=== PATIENT | female | born 1975 | race Caucasian/White ===

== ENCOUNTER 2018-10-17 05:04 | Day surgery (SDC) | payer OTHER ==
[2018-10-16 13:17] VITALS: BMI 41.8
[2018-10-17] MEDS ORDERED: IBUPROFEN 800 MG/8 ML IJ IVPB PRN (10:07)
--- NOTE | 2018-10-17 10:07 | HP ---
History & Physical Update - History History: No Change - Physical Physical: No Change - Assessment Assessment: No Change - Plan Plan: No Change (diagnostic laparoscopy for pelvic pain, possible endometriosis (agree with H&P from 10/16/18))
[2018-10-17] MEDS ORDERED: LACTATED RINGERS SOLUTION 1,000 ML IV SCH ×2 (10:15→13:15)
[2018-10-17] MEDS ORDERED: MIDAZOLAM HCL 2 MG/2 ML SINGLE DOSE VIAL ONE ×2 (10:16)
[2018-10-17] MEDS ORDERED: fentaNYL CITRATE 250 MCG/5 ML VIAL ONE (10:22)
[2018-10-17] MEDS ORDERED: PROPOFOL 20 ML ONE ×2 (10:24)
[2018-10-17] MEDS ORDERED: ROCURONIUM BROMIDE 50 MG/5 ML VIAL ONE (10:32)
[2018-10-17] MEDS ORDERED: BUPIVACAINE HCL/PF (5 MG/ML) 30 ML VIAL IJ ONE (10:34)
[2018-10-17] MEDS ORDERED: GLYCOPYRROLATE 0.2 MG/1 ML VIAL ONE ×2 (11:09)
[2018-10-17] MEDS ORDERED: LIDOCAINE HCL/PF 2% SDV 5ML VIAL ONE (11:09)
[2018-10-17] MEDS ORDERED: NEOSTIGMINE METHYLSULFATE 0.5 MG/ML - 10 ML MDV ONE (11:09)
[2018-10-17] MEDS ORDERED: DEXAMETHASONE SOD PHOSPHATE 4 MG/1 ML VIAL ONE (11:09)
--- NOTE | 2018-10-17 11:37 | OP ---
<Julio Do - Last Filed: 10/17/18 11:31> Operative Note - Note: Operative Date: 10/17/18 Pre-Operative Diagnosis: Pelvic Pain Operation: Diagnostic laparoscopy, ablation of lesion Findings: as dictated Post-Operative Diagnosis: Same as Pre-op Surgeon: Annette Abreu Delivery Merchandiser: Julio Do Anesthesiologist/DUST BOX TENDER: Kylah Presley MD Anesthesia: General, Local (8cc .25% marcaine injected to incisions at end of case ) Specimens Removed: none Drains, Volume Out (mls): 145 (ml clear urine out ) Fluid Volume Replaced (mls): 1 (L LR) <Annette Abreu - Last Filed: 10/17/18 15:01> Operative Note - Note: Operation: fulguration of uterosacral endometriosis implants
--- NOTE | 2018-10-17 11:44 | SURG ---
Surgery Human Resources Partner Note Human Resources Partner: Julio Do PA-C (Suzy) Date of Service: 10/17/18 Diagnosis: Pelvic Pain Procedure: Diagnostic laparoscopy, fulguration of endometrial implants I was present for the entirety of the operative procedure. For further detail, please refer to operative report. Visit type - Case Type Case Type: Scheduled - Emergency Emergency Visit: No - New patient This patient is new to me today: Yes Date on this admission: 10/23/18 - Critical Care Critical Care patient: No
[2018-10-17] MEDS ORDERED: PROMETHAZINE HCL 25 MG/1 ML VIAL IVPUSH PRN (13:05)
[2018-10-17] MEDS ORDERED: ONDANSETRON 4 MG/2 ML VIAL IVPUSH PRN (13:05)
[2018-10-17] MEDS ORDERED: oxyCODONE HCL 5 MG TABLET PO PRN (13:05)
[2018-10-17] MEDS ORDERED: oxyCODONE HCL 5 MG TABLET PO ONE (13:40)
[2018-10-17 16:33] VITALS: BP 121/66; PULSE 83; TEMP 98.1
--- NOTE | 2018-10-19 09:31 | OP ---
DATE OF OPERATION: 10/17/2018 PREOPERATIVE DIAGNOSIS: Chronic pelvic pain, suspected endometriosis. POSTOPERATIVE DIAGNOSIS: Confirmed endometriosis. PROCEDURE: Diagnostic laparoscopy, fulguration of endometriosis implants. SURGEON: Annette Abreu MD TOOL PROGRAMMER: CARINA Us ANESTHESIA: General. ANESTHESIOLOGIST: Kylah Presley MD COMPLICATIONS: None. COUNTS: Sponge, needle, and instrument counts correct. DISPOSITION: Stable to the PACU. SPECIMENS: None. BRIEF HISTORY AND PROCEDURE: Patient is a 43-year-old female who was seen in the office with complaints of a chronic history of suspected endometriosis with failed hormonal therapy. The patient admits into having a diagnostic laparoscopy for confirmation of diagnosis. The patient signed consents for the procedure in the office and was admitted to [facility] on October 17, 2018, where consents were reconfirmed. The patient was then taken back to the operating room, given general anesthesia, placed in the dorsal lithotomy position, and a hard time-out was performed. A 5-mm skin incision was created in the umbilicus, and the Veress needle was placed intraabdominally. Then, the abdomen was insufflated with CO2 gas. A 5-mm trocar was inserted into the same site. After the camera was inserted and intraabdominal placement was confirmed, 2 bilateral 5-mm trocars were placed on the left and right lower quadrant under direct visualization. After inspection of the abdomen and pelvis, multiple endometriosis implants were noted on the posterior cul-de-sac, on the posterior aspect of the uterus, and on the right uterosacral ligament. These were carefully fulgurated with EndoShears at this time. The right ureter was noted to be peristalsing in a normal caliber lateral to the uterosacral ligament after the procedure. All instruments were then removed from the abdomen. The abdomen was desufflated. The trocars were removed. The skin was reapproximated using 4-0 Biosyn and skin glue, and the patient was awoken from anesthesia in stable condition. Sponge, needle, and instrument counts were reported to be correct. ANNETTE ABREU DO /[id number]
== END 2018-10-17 15:30 | disposition home or self-care (01) ==
LOC: JASUSAT 05:04
PROVIDERS: ATTEND Obstetrics & Gynecology
PROC: 0U594ZZ Destruction of Uterus, Percutaneous Endoscopic Approach (ICD-10-PCS; 2018-10-17)
PROC: 0U544ZZ Destruction of Uterine Supporting Structure, Percutaneous Endoscopic Approach (ICD-10-PCS; principal; 2018-10-17 10:00)
DX: N80.0 Endometriosis of uterus (principal)
CPT/HCPCS: 36415; 84702; 86850; 86900; 86901; 94760

== ENCOUNTER 2023-06-01 06:16 | Day surgery (SDC) | payer OTHER ==
[2023-05-24 09:51] VITALS: BMI 27.6
[2023-06-01] MEDS ORDERED: MIDAZOLAM HCL 2 MG/2 ML SINGLE DOSE VIAL ONE ×2 (07:21→07:33)
[2023-06-01] MEDS ORDERED: ceFAZolin SODIUM 1 GM VIAL ONE (07:22)
[2023-06-01] MEDS ORDERED: ONDANSETRON 4 MG/2 ML VIAL ONE (07:22)
[2023-06-01] MEDS ORDERED: PROPOFOL 40 ML ONE (07:22)
[2023-06-01] MEDS ORDERED: DEXAMETHASONE SOD PHOSPHATE 4 MG/1 ML VIAL ONE (07:22)
[2023-06-01] MEDS ORDERED: LIDOCAINE HCL/PF 2% SDV 5ML VIAL ONE (07:24)
[2023-06-01] MEDS ORDERED: ROPIVACAINE HCL 0.5% 30ML VIAL ONE (07:31)
[2023-06-01] MEDS ORDERED: oxyCODONE HCL 5 MG TABLET PO PRN ×2 (07:42)
[2023-06-01] MEDS ORDERED: ONDANSETRON 4 MG/2 ML VIAL IVPUSH PRN (07:42)
[2023-06-01] MEDS ORDERED: LACTATED RINGERS SOLUTION 1,000 ML IV SCH (07:45)
[2023-06-01 10:22] VITALS: PULSE 84; RESP 16; TEMP 98.4
[2023-06-01 10:46] VITALS: BP 130/78
== END 2023-06-01 10:55 | disposition home or self-care (01) ==
LOC: FASU 06:16 → MERGE 11:00
PROVIDERS: ATTEND Orthopaedic Surgery
PROC: 0RNJ4ZZ Release Right Shoulder Joint, Percutaneous Endoscopic Approach (ICD-10-PCS; 2023-06-01)
PROC: 0RSJXZZ Reposition Right Shoulder Joint, External Approach (ICD-10-PCS; 2023-06-01)
PROC: 0PB94ZZ Excision of Right Clavicle, Percutaneous Endoscopic Approach (ICD-10-PCS; principal; 2023-06-01 08:30)
DX: M75.41 Impingement syndrome of right shoulder (principal); M12.811 Other specific arthropathies, not elsewhere classified, right shoulder
CPT/HCPCS: 94760